=== PATIENT | male | born 1960 | race Caucasian/White ===

== ENCOUNTER 2016-07-18 07:56 | Emergency (ER) | payer BC ==
[~2016-07-18] VITALS: Ht 170.2 cm; Wt 68.0 kg
[2016-07-18] MEDS ORDERED: PREZISTA600 MG ORAL (08:06)
[2016-07-18] MEDS ORDERED: NORVIR100 MG ORAL (08:06)
--- NOTE | 2016-07-18 08:22 | Emergency Room Report ---
History of Present Illness General Chief Complaint: Dyspnea/Respdistress Source: Patient Present Illness HPI The patient presents with several days of fevers and cough with some shortness of breath. The cough is nonproductive. The temperature last night was 101.5. He took Motrin 5 hours ago. He feels pressure in his chest like something sitting on it. The patient is on antivirals. He his last CD4 and viral load were 6 months ago they were okay. Denies any vomiting diarrhea, sore throat, dysuria, rashes, headache. He has not hurt himself wheezing but in the past he's had bronchitis and had improvement with albuterol. Many years ago he had Pneumocystis. Last CD4 and viral titer 6 months ago and "normal". Initially reported 2 antivirals, then corrected and unable to name 3rd. No DM, HTN, family history, smoking. No prior h/o anemia. No melena or bleeding. 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 Review of Systems All Other Systems: negative except mentioned in HPI Physical Exam Vital Signs Date Time Temp Pulse Resp B/P Pulse Ox O2 Delivery O2 Flow Rate FiO2 07/18/16 07:59 98.8 98 20 105/60 100 Room Air Sp02 EP Interpretation: reviewed, normal General Appearance: well appearing, no apparent distress, GCS 15 Head: normocephalic Eyes: bilateral eye PERRL, bilateral eye normal inspection ENT: normal pharynx, moist mucus membranes Neck: supple Respiratory: chest non-tender, lungs clear, normal breath sounds Cardiovascular #1: regular rate, rhythm Cardiovascular #2: 2+ radial (R) Gastrointestinal: normal inspection, normal bowel sounds, non tender, no mass, non-distended Musculoskeletal: back normal, gait/station normal, normal range of motion Neurologic: alert, oriented x3, grossly normal Psychiatric: mood/affect normal Skin: normal inspection, warm/dry Medical Decision Making Diagnostic Impression: Primary Impression: Bronchospasm with bronchitis, acute Additional Impression: Anemia Qualified Codes: D64.9 - Anemia, unspecified ER Course Patient with fever and cough on antivirals. Ddx: pneumonia, bronchitis, bronchospasm, viral syndrome, other occult source of fever. Evaluation with labs, EKG, CXR. Treatment with albuterol, though lungs clear. Chest pressure needs cardiac evaluation, though risk factors negative. VS against PE and fever makes this less likely. Labs with anemia. Patient states no prior h/o anemia. ROS for bleeding negative. CXR with large L hilum, no infiltrates. Discussed findings with patient. Contacted PMD who recommended start Levaquin. Improved with albuterol. Patient stable for outpatient observation and treatment. Laboratory Tests Test 07/18/16 08:20 07/18/16 10:00 White Blood Count 5.1 K/UL (4.8-10.8) Red Blood Count 3.71 M/UL (4.70-6.10) L Hemoglobin 9.6 G/DL (14.2-18.0) L Hematocrit 31.5 % (42.0-52.0) L Mean Corpuscular Volume 85 FL (80-99) Mean Corpuscular Hemoglobin 25.9 PG (27.0-31.0) L Mean Corpuscular Hemoglobin Concent 30.5 G/DL (32.0-36.0) L Red Cell Distribution Width 13.1 % (11.6-14.8) Platelet Count 136 K/UL (150-450) L Mean Platelet Volume 6.6 FL (6.5-10.1) Neutrophils (%) (Auto) % (45.0-75.0) Lymphocytes (%) (Auto) % (20.0-45.0) Monocytes (%) (Auto) % (1.0-10.0) Eosinophils (%) (Auto) % (0.0-3.0) Basophils (%) (Auto) % (0.0-2.0) Differential Total Cells Counted 100 Neutrophils % (Manual) 85 % (45-75) H Lymphocytes % (Manual) 2 % (20-45) L Monocytes % (Manual) 6 % (1-10) Eosinophils % (Manual) 0 % (0-3) Basophils % (Manual) 1 % (0-2) Band Neutrophils 6 % (0-8) Platelet Estimate Decreased L Platelet Morphology Normal Hypochromasia 2+ Anisocytosis 1+ Prothrombin Time 11.3 SEC (9.30-11.50) Prothrombin Time INR 1.1 (0.9-1.1) PTT 35 SEC (23-33) H Sodium Level 136 mEQ/L (135-145) Potassium Level 4.4 mEQ/L (3.4-4.9) Chloride Level 96 mEQ/L (98-107) L Carbon Dioxide Level 23 mEQ/L (20-30) Anion Gap 17 (5-15) H Blood Urea Nitrogen 24 mg/dL (7-23) H Creatinine 1.2 mg/dL (0.7-1.2) Estimate Glomerular Filtration Rate > 60 mL/min (>60) Glucose Level 115 mg/dL (74-106) H Lactic Acid Level 0.80 mmol/L (0.66-2.22) Calcium Level 8.4 mg/dL (8.6-10.2) L Total Bilirubin 0.2 mg/dL (0.0-1.2) Aspartate Amino Transferase (AST) 24 U/L (5-40) Alanine Aminotransferase (ALT) 14 U/L (3-41) Alkaline Phosphatase 45 U/L (40-129) Total Creatine Kinase 572 U/L (38-174) H Troponin I < 0.30 ng/mL (<=0.30) Pro-B-Type Natriuretic Peptide 163 pg/mL (0-125) H Total Protein 7.3 g/dL (6.6-8.7) Albumin 3.7 g/dL (3.5-5.2) Globulin 3.6 g/dL Albumin/Globulin Ratio 1.0 (1.0-2.7) Urine Color Pale yellow Urine Appearance Clear Urine pH 5 (4.5-8.0) Urine Specific [place] 1.015 (1.005-1.035) Urine Protein 1+ (NEGATIVE) H Urine Glucose (UA) Negative (NEGATIVE) Urine Ketones Negative (NEGATIVE) Urine Occult Blood Negative (NEGATIVE) Urine Nitrite Negative (NEGATIVE) Urine Bilirubin Negative (NEGATIVE) Urine Urobilinogen Normal MG/DL (0.0-1.0) Urine Leukocyte Esterase Negative (NEGATIVE) Urine RBC 0-2 /HPF (0 - 0) H Urine WBC 0-2 /HPF (0 - 0) Urine Squamous Epithelial Cells Occasional /LPF Urine Bacteria Occasional /HPF (NONE) Urine Hyaline Casts 0-2 /LPF (NONE) H Urine Granular Casts 2-4 /LPF (NONE) H Urine Fine Granular Casts 0-2 /LPF (NONE) H EKG Diagnostic Results Rate: normal Rhythm: NSR ST Segments: no acute changes Rhythm Strip Diag. Results Rhythm: NSR, no PVC's, no ectopy Chest X-Ray Diagnostic Results EP Interpretation: Yes Findings: no consolidation, no effusion, no pneumothorax, other - L hilum large Number of Views: 1 Last Vital Signs Date Time Temp Pulse Resp B/P Pulse Ox O2 Delivery O2 Flow Rate FiO2 07/18/16 11:06 98.7 98 18 101/65 95 Room Air Status: improved Disposition: HOME, SELF-CARE Condition: Improved Scripts Multivitamin With Minerals (MULTIVITAMINS WITH MINERALS*) 1 Each Tablet 1 TAB ORAL DAILY, #30 TAB Prov: Fritz Cross M.D. 07/18/16 Albuterol Sulfate* (ALBUTEROL SULFATE MDI*) 8.5 Gm Hfa.aer.ad 2 PUFF INH Q6H, #1 EA 0 Refills Prov: Fritz Cross M.D. 07/18/16 Levofloxacin* (LEVAQUIN*) 500 Mg Tablet 500 MG ORAL DAILY, #6 TAB Prov: Fritz Cross M.D. 07/18/16 Fritz Cross M.D. July 18, 2016 08:22
[2016-07-18] MEDS ORDERED: Albuterol ud Inhalation HHN ONE (08:30)
[2016-07-18] MEDS ORDERED: Acetaminophen 500mg (ES) tab ORAL ONE (08:30)
[2016-07-18] MEDS ORDERED: NS Irrig 4000ml IRRIG ONE (08:49)
[2016-07-18 09:00] LABS: MEAN CORPUSCULAR HEMOGLOBIN 25.9 PG (27.0-31.0); MEAN CORPUSCULAR HGB CONC 30.5 G/DL (32.0-36.0); MEAN CORPUSCULAR VOLUME 85 FL (80-99); MEAN PLATELET VOLUME 6.6 FL (6.5-10.1); PLATELET COUNT 136 K/UL (150-450); RED BLOOD COUNT 3.71 M/UL (4.70-6.10); RED CELL DISTRIBUTION WIDTH 13.1 % (11.6-14.8); WHITE BLOOD COUNT 5.1 K/UL (4.8-10.8)
[2016-07-18 09:04] LABS: INR 1.1 (0.9-1.1); PROTHROMBIN TIME 11.3 SEC (9.30-11.50)
[2016-07-18 09:10] LABS: TROPONIN I < 0.30 ng/mL (<=0.30)
[2016-07-18 09:11] LABS: ALANINE AMINOTRANSFERASE 14 U/L (3-41); ANION GAP 17 (5-15); ASPARTATE AMINO TRANSFERASE 24 U/L (5-40); CALCIUM 8.4 mg/dL (8.6-10.2); CARBON DIOXIDE 23 mEQ/L (20-30); CHLORIDE 96 mEQ/L (98-107); CREATININE 1.2 mg/dL (0.7-1.2); GLOMERULAR FILTRATION RATE > 60 mL/min (>60); HEMOLYSIS 3; POTASSIUM 4.4 mEQ/L (3.4-4.9); SODIUM 136 mEQ/L (135-145); TOTAL PROTEIN 7.3 g/dL (6.6-8.7)
--- NOTE | 2016-07-18 09:58 | Diagnostic Imaging Report ---
Indication: Chest pain Technique: Single AP view of the chest. Findings: Comparison: None. Bilateral hilar regions are prominent, left greater than right. Suggestion of one or more circumscribed lucencies in left lung apex. Right lung clear. Lungs normally, symmetrically inflated. The bones and extra pulmonary soft tissues, remainder of the cardiomediastinal silhouette, pulmonary vasculature, and pleural surfaces are unremarkable. IMPRESSION: No evidence of acute cardiopulmonary disease Suggestion of left apical bullous disease Bilateral hilar prominence, left greater than right, may simply represent prominent pulmonary arteries in the setting of pulmonary arterial hypertension. Superimposed mass/adenopathy not excludable. Consider elective contrast-enhanced CT scan the thorax for further evaluation, as clinically indicated..
[2016-07-18 09:59] LABS: ANISOCYTOSIS 1+; BAND NEUTROPHILS % (MANUAL) 6 % (0-8); BASOPHILS % (MANUAL) 1 % (0-2); EOSINOPHILS % (MANUAL) 0 % (0-3); HYPOCHROMASIA 2+; LYMPHOCYTES % (MANUAL) 2 % (20-45); NEUTROPHILS % (MANUAL) 85 % (45-75); PLATELET ESTIMATE DECREASED; PLATELET MORPHOLOGY NORMAL; TOTAL CELLS COUNTED 100
[2016-07-18 10:15] LABS: APPEARANCE,URINE CLEAR; KETONES,URINE NEGATIVE (NEGATIVE); LEUKOCYTE ESTERASE ,URINE NEGATIVE (NEGATIVE); NITRITE,URINE NEGATIVE (NEGATIVE); PH,URINE 5 (4.5-8.0); PROTEIN,URINE 1+ (NEGATIVE); UROBILINOGEN,URINE NORMAL MG/DL (0.0-1.0)
[2016-07-18 10:40] LABS: BACTERIA,URINE OCCASIONAL /HPF; FINE GRANULAR CASTS,URINE 0-2 /LPF; HYALINE CASTS, URINE 0-2 /LPF; RBC,URINE 0-2 /HPF (0 - 0); SQUAMOUS EPITHELIAL CELL,UR OCCASIONAL /LPF (NONE/OCC); WBC,URINE 0-2 /HPF (0 - 0)
[2016-07-18 10:41] VITALS: BP 101/65
[2016-07-18] MEDS ORDERED: Levofloxacin 500mg tab ORAL ONE (11:00)
[2016-07-18 11:06] VITALS: BP 101/65
[2016-07-18] MEDS ORDERED: LEVAQUIN500 MG ORAL (11:07)
[2016-07-18] MEDS ORDERED: ALBUTEROL SULF8.5 GM INH (11:07)
[2016-07-18] MEDS ORDERED: MULTIVITAMINS1 EAC8 ORAL (11:07)
--- NOTE | 2016-07-20 17:40 | Cardiology Report ---
APPROVED REPORT EKG Measurement Heart [id number] Normal sinus rhythm Normal ECG
== END 2016-07-18 11:18 | disposition home or self-care (01) ==
LOC: EMR 08:48
DX: J20.9 Acute bronchitis, unspecified (principal); D64.9 Anemia, unspecified; Z88.8 Allergy status to other drugs, medicaments and biological substances
CPT/HCPCS: 36415; 71010; 80053; 81003; 82550; 83605; 83880; 84484; 85007; 85025; 85610; 85730; 87040; 93005; 94644; 96360

== ENCOUNTER → 2016-07-24 | Outpatient (CLI) | payer BC ==
[~2016-07-24] MED LIST: ALBUTEROL SULF8.5 GM INH; LEVAQUIN500 MG ORAL; MULTIVITAMINS1 EAC8 ORAL; NORVIR100 MG ORAL; PREZISTA600 MG ORAL
--- NOTE | 2016-07-24 11:57 | Diagnostic Imaging Report ---
Indication: COUGH Technique: 2 views of the chest Comparison: 07/18/2016. Findings: Lungs and pleural spaces are clear. Heart size is normal. Bones are unremarkable. Left hilar prominence is again demonstrated.. Scarring in the left lung apex is again demonstrated, previously reported bullous changes are less abdomen currently. There is no significant interim change. Impression: No acute process. 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
== END | disposition home or self-care (01) ==
LOC: RAD 11:14
DX: R05 Cough (principal)
CPT/HCPCS: 71020